=== PATIENT | female | born 1985 | race Caucasian/White ===

== ENCOUNTER → 2018-04-06 17:05 | Outpatient (CLI) | payer SELFPAY ==
[2018-04-06 18:35] LABS: T4 Free Direct 1.06 ng/dL (0.76-1.46)
[2018-04-06 19:04] LABS: Hemoglobin A1c 4.8 % (4.2-6.3)
== END ==
PROVIDERS: Visit Provider Obstetrics & Gynecology
DX: N92.6 Irregular menstruation, unspecified (principal)
CPT/HCPCS: 36415; 83036; 84439; 84443; 84481

== ENCOUNTER → 2018-08-11 | Outpatient (CLI) | payer OTHER, SELFPAY ==
[2018-08-17 10:47] LABS: HPV Reflexed? NOT INDICATED
== END | disposition home or self-care (01) ==
PROVIDERS: Visit Provider Obstetrics & Gynecology
DX: Z12.4 Encounter for screening for malignant neoplasm of cervix (principal)
CPT/HCPCS: 88175; G0145

== ENCOUNTER 2019-02-24 03:49 | Emergency (ER) | payer OTHER, SELFPAY ==
[2019-02-24 03:52] VITALS: BP 138/94; PULSE 122; RESP 18; TEMP 36.7; O2SAT 96; BMI 30.2
--- NOTE | 2019-02-24 03:57 | ED.DCSUM_ITS ---
History of Present Illness Chief Complaint: Abd Pain Informant: Patient Onset: Yesterday Narrative: Patient here with family suprapubic discomfort waxing and waning since yesterday. No urinary symptoms. Normal bowel movement 5 hours ago. No fever, chills, sweats. History of tubal ligation. Denies nausea or vomiting. No history of kidney stones or diverticulitis. No previous similar symptoms in the past. History of tubal ligation. No daily medicines. Rare alcohol use. Reports cramping in nature like contractions.. Reports pain is 5 out of 10. Denies any known family history of Crohn's disease or ulcerative colitis. No history of colonoscopy. Prior similar symptoms: No Past Medical History - Allergies and Home Meds Allergies/Adverse Reactions: Allergies No Known Allergies Allergy (Verified 02/24/19 03:49) Primary Care Physician: Care Physician,No Primary [Primary Care Provider] - Smoking Status: Light Smoker (<10/day) Review of Systems General: Denies: Chills, Fever, Sweats Eyes: Denies: Visual changes - bilaterally, Diplopia ENT: Denies: Rhinorrhea, Sore throat Cardiovascular: Denies: Chest pain, Palpitations Respiratory: Denies: Dyspnea, Cough, Dyspnea on exertion Gastrointestinal: Reports: Abdominal pain. Denies: Nausea, Vomiting, Diarrhea, Melena, Hematochezia Genitourinary: Denies: Dysuria, Hematuria, Frequency Musculoskeletal: Denies: Back pain, Extremity Pain Skin: Denies: Rash, Wounds Neurological: Denies: Headache, Weakness, Numbness Physical Exam Vital Signs/Narrative: Vital Signs Temp Pulse Resp BP Pulse Ox 02/24/19 03:52 98.0 F 122 H 18 138/94 H 96 Inital Vital Signs reviewed: Yes General: Well nourished, Well developed, No Acute Distress Head: Normocephalic, Atraumatic Eyes: Perrl, EOMI ENT: Moist mucous membranes, No rhinorrhea Neck: Supple, Nontender Cardiovascular: Regular rate, Regular rhythm, No murmurs, Tachycardia Respiratory: No distress, CTA bilaterally, Chest nontender Abdomen: Soft, Nondistended, Normal bowel sounds, - - Negative Ceja's or McBurney's tenderness. Mild suprapubic tenderness. No guarding or rebound Back: Nontender, Normal Inspection Extremities: Nontender, No edema Skin: Normal color, No rash Neurological: Alert, Oriented x3, Cranial nerves II-XII grossly intact, Normal Strength, Normal Sensation Psychological: Normal affect, Normal Mood Diagnostic/Tx/Re-eval Clinical Impression(s) from Imaging Studies Abdomen/Pelvis CT 02/24/19 03:57 IMPRESSION: Acute sigmoid diverticulitis. There is no appendicitis, abdominal ascites abscess, collection, perforation or obstruction. Possible ovarian cysts versus mild fluid filled fallopian tubes, no inflammation detected. Mild pelvic fluid. Electronically Signed: Eve Márquez MD at 4:56 EDT , Service support , Abnormal Lab Results 02/24/19 02/24/19 02/24/19 04:05 04:10 04:10 WBC 12.6 H RBC 4.30 Hgb 13.6 Hct 38.7 MCV 90.0 MCH 31.6 MCHC 35.1 RDW Std Deviation 41.7 RDW Coeff of Min 12.7 Plt Count 218 MPV 11.4 Immature Gran % (Auto) 0.300 Neut % (Auto) 80.7 H Lymph % (Auto) 12.5 L [place] % (Auto) 6.2 Eos % (Auto) 0.1 Baso % (Auto) 0.2 Absolute Neuts (auto) 10.2 H Absolute Lymphs (auto) 1.57 Nucleated RBC % 0 Sodium Cancelled Potassium Cancelled Chloride Cancelled Carbon Dioxide Cancelled Anion Gap Cancelled BUN Cancelled Creatinine Cancelled Estim Creat Clear Calc Cancelled Est GFR (MDRD) Af Amer Cancelled Est GFR (MDRD) Non-Af Cancelled BUN/Creatinine Ratio Cancelled Glucose Cancelled Calcium Cancelled Total Bilirubin Cancelled AST Cancelled ALT Cancelled Alkaline Phosphatase Cancelled Total Protein Cancelled Albumin Cancelled Globulin Cancelled Albumin/Globulin Ratio Cancelled Lipase Cancelled Urine Color Yellow Urine Clarity Clear Urine pH 6.0 Ur Specific [place] 1.015 Urine Protein Negative Urine Glucose (UA) Normal Urine Ketones 150 H Urine Occult Blood 25 H Urine Nitrite Negative Urine Bilirubin Negative Urine Urobilinogen Normal Ur Leukocyte Esterase Negative Urine RBC 0 SEEN Urine WBC 0 SEEN Ur Squamous Epith Cells 0-5 SEEN Urine Bacteria 0 SEEN Urine Mucus 0 SEEN 02/24/19 04:30 WBC RBC Hgb Hct MCV MCH MCHC RDW Std Deviation RDW Coeff of Min Plt Count MPV Immature Gran % (Auto) Neut % (Auto) Lymph % (Auto) [place] % (Auto) Eos % (Auto) Baso % (Auto) Absolute Neuts (auto) Absolute Lymphs (auto) Nucleated RBC % Sodium 142 Potassium 3.4 L Chloride 110 H Carbon Dioxide 22.0 Anion Gap 10 BUN 9 Creatinine 0.70 Estim Creat Clear Calc 120.49 Est GFR (MDRD) Af Amer 122 Est GFR (MDRD) Non-Af 101 BUN/Creatinine Ratio 12.9 Glucose 97 Calcium 8.4 L Total Bilirubin 1.10 H AST 13 L ALT 21 Alkaline Phosphatase 76 Total Protein 6.7 Albumin 3.3 Globulin 3.4 Albumin/Globulin Ratio 1.0 Lipase 105 Urine Color Urine Clarity Urine pH Ur Specific [place] Urine Protein Urine Glucose (UA) Urine Ketones Urine Occult Blood Urine Nitrite Urine Bilirubin Urine Urobilinogen Ur Leukocyte Esterase Urine RBC Urine WBC Ur Squamous Epith Cells Urine Bacteria Urine Mucus - Medical Decision Making Patient afebrile, nonsurgical abdomen. Fluids for tachycardia. She declined any pain medicines. Labs noted white count 12.6. Noncontrast CT notes acute diverticulitis sigmoid colon. Also noted ovarian cyst. Normal appendix. Discussed findings with patient. Start on Cipro and Flagyl for 10-day course. Discussed using Tylenol or Motrin as needed. Signs and symptoms discussed return otherwise she is given follow-up with Dr. Pereira for plan outpatient colonoscopy in the near future. States her current PCP is no longer practicing in the area. She will follow-up with her valve fitter with findings of ovarian cysts. All questions were answered. ED Disposition - Plan for ED Patient: Disposition: Home or Assisted Living Diagnosis: Acute diverticulitis, Ovarian cyst Instructions: Diverticulitis, Ovarian Cyst Prescriptions: Ciprofloxacin [Cipro] 500 mg PO BID #20 tablet metroNIDAZOLE [Flagyl] 500 mg PO Q8H #30 tablet Referrals: Care Physician,No Primary [Primary Care Provider] - Jere Pereira MD [STAFF PHYSICIAN] - 1-2 Weeks Additional Instructions: Follow-up with Dr. Pereira for diverticulitis with your plan outpatient colonoscopy. Follow-up with your valve fitter for ovarian cysts.
--- NOTE | 2019-02-24 03:57 | CT_ITS ---
STUDY: CT ABDOMEN AND PELVIS WITHOUT CONTRAST REASON FOR EXAM: Female, 33 years old. Suprapubic pain and cramping since yesterday. Prior tubal ligation. RADIATION DOSAGE (If Supplied By Facility): CTDIvol = ( 7.19 ) mGy, DLP = ( 346.81 ) mGycm TECHNIQUE: Transaxial images were obtained from the dome of the diaphragm to the symphysis pubis without oral contrast, and without intravenous contrast. Sagittal and coronal images were reconstructed. Individualized dose optimization techniques were used for this CT. COMPARISON: None. FINDINGS: The visualized lung bases are unremarkable. The visualized portions of the heart are within normal limits. Normal liver. Normal gallbladder and extrahepatic biliary system. Normal spleen. Normal pancreas. Normal bilateral adrenal glands. Normal right kidney. Normal left kidney. There is no obstructive uropathy, obstructive renal or ureteral calculi. Normal visualized stomach. Normal small intestine. There is diverticulosis, with thickening of the sigmoid colon wall, and pericolonic inflammation changes consistent with acute diverticulitis. The appendix is visualized and appears normal. Image [id number] series 2 Normal abdominal aorta. Normal inferior vena cava. Normal retroperitoneum. Normal urinary bladder. Normal visualized uterus. Bilateral fallopian tube clips. Tubular low-attenuation in the left greater than right adnexa a represent an elongated cysts. Tubular dilatation without wall thickening is difficult to separate. This measures on the left 1.5 x 1.5 cm, 0.7 cm on the right. There is mild pelvic fluid in the cul-de-sac. Normal abdominal wall. Age appropriate osseous structures. CT/Abdomen/Pelvis without Cont IMPRESSION: Acute sigmoid diverticulitis. There is no appendicitis, abdominal ascites abscess, collection, perforation or obstruction. Possible ovarian cysts versus mild fluid filled fallopian tubes, no inflammation detected. Mild pelvic fluid. Electronically Signed: Eve Márquez MD at 4:56 EDT , Service support ,
[2019-02-24 04:09] LABS: Bacteria 0 SEEN /hpf (None Seen); Mucous, Urine 0 SEEN /hpf (<or=2+); Red Blood Cells-Urine 0 SEEN /hpf (0-5); White Blood Cells 0 SEEN /hpf (0-5)
[2019-02-24 04:11] VITALS: TEMP 37
[2019-02-24 04:11] LABS: Color, Urine Yellow (Yellow); Glucose, Dipstick Normal (Normal); Leukocyte Esterase-Dipstick Negative /ul (Negative); Nitrite-Dipstick Negative (Negative); Occult Blood-Urine 25 /ul (Negative); Protein-Dipstick Negative (Negative); Specific Gravity, Urine 1.015 (1.002-1.030); Urine Bilirubin Dipstick Negative (Negative); Urine Clarity Clear (Clear); Urine Urobilinogen Normal (Normal)
[2019-02-24 04:18] LABS: Absolute Lymphocyte Count 1.57 X10^3/uL (0.83-4.51); Absolute Neutrophil Count 10.2 X10^3/uL (2.0-7.7); Basophil# 0.02 X10^3/uL; Basophil% 0.2 % (0-1); Eosinophil# 0.01 X10^3/uL; Eosinophils% 0.1 % (0-5); Hematocrit 38.7 % (37-47); Hemoglobin 13.6 g/dL (12.0-15.0); Lymphocyte # 1.57 X10^3/ul (4.0); Lymphocyte % 12.5 % (19-41); Mean Corp Hgb Conc 35.1 g/dL (32-36); Mean Corpuscular Hgb 31.6 pg (27.0-32.0); Mean Platelet Vol. 11.4 fl (6.2-12.0); Monocyte# 0.78 X10^3/uL; Monocyte% 6.2 % (0-10); NRBC Flagged by Analyzer 0 % (0-5); Neutrophil # 10.18 X10^3/uL (2.7-7.7); Neutrophil % 80.7 % (47-70); Platelet Count 218 K/mm3 (150-450); RBC Distribution Width CV 12.7 % (11.6-14.6); RBC Distribution Width SD 41.7 fl (35.1-43.9); White Blood Count 12.6 K/mm3 (4.4-11.0)
[2019-02-24 04:25] LABS: Ketone-Dipstick 150 mg/dl (Negative)
[2019-02-24 04:32] LABS: Squamous Epithelial Cells - UA 0-5 SEEN /hpf (5-10)
[2019-02-24 05:11] LABS: AST(SGOT) 13 U/L (15-37); Alanine Aminotransfer ALT/SGPT 21 U/L (13-56); Albumin, Serum 3.3 g/dL (3.2-5.0); Alkaline Phosphatase 76 U/L (45-117); Anion Gap 10 (5-15); BUN 9 mg/dL (7-18); BUN/Creat Ratio 12.9 RATIO (10-20); Calcium,Total 8.4 mg/dL (8.5-10.1); Chloride 110 mmol/L (98-107); EST Glomerular Filtration Rate 101 mL/min (>60); Est Glom Filt Rate - Afr Amer 122 mL/min (>60); Estimated Creatinine Clearance 120.49 ml/min; Globulin 3.4 g/dL (2.2-4.2); Glucose 97 mg/dL (74-106); Lipase 105 U/L (73-393); Potassium 3.4 mmol/L (3.5-5.1); Protein, Total 6.7 g/dL (6.4-8.2); Sodium Level 142 mmol/L (136-145)
[2019-02-24 05:49] VITALS: RESP 16
[2019-02-24] MEDS: metroNIDAZOLE 500 MG Tablet PO (05:59)
[2019-02-24] MEDS: Ciprofloxacin 500 MG Tablet PO (05:59)
[2019-02-24 06:03] VITALS: BP 97/74; PULSE 100; RESP 16; O2SAT 98
== END 2019-02-24 06:04 | disposition home or self-care (01) ==
PROVIDERS: Emergency Provider Emergency Medicine
DX: K57.32 Diverticulitis of large intestine without perforation or abscess without bleeding (principal); N83.209 Unspecified ovarian cyst, unspecified side; F17.200 Nicotine dependence, unspecified, uncomplicated; Z98.51 Tubal ligation status
CPT/HCPCS: 74176; 80053; 81001; 83690; 85025; 99284; J7030; A4216

== ENCOUNTER 2019-04-17 09:21 | Day surgery (SDC) | payer OTHER, SELFPAY ==
--- NOTE | 2019-04-07 01:16 | HP_ITS ---
Intake Vital Signs 04/07/19 Body Mass Index (BMI) 30.2 04/07/19 Height 4 ft 11 in 04/07/19 Weight: 145 lb 04/07/19 Body Mass Index (BMI) 29.2 04/07/19 Blood Pressure 115/75 04/07/19 Blood Pressure Location Rt brachial 04/07/19 Respiratory Rate 16 04/07/19 Pulse Rate 59 L 04/07/19 Pulse Source Monitor 04/07/19 Temperature 97.5 F L 04/07/19 Temperature Source Oral 04/07/19 Pulse Ox 99 04/07/19 Oxygen Delivery Method room air Intake Visit Reasons: ER 1 MONTH F/U [facility] 02/24 Abdominal Pain Guard Lieutenant Required: No Is patient in pain?: No Allergies No Known Allergies Allergy (Verified 04/07/19 13:01) Medications fluconazole 50 mg tablet 50 mg PO 2XW tab 03/09/19 [History Confirmed 03/09/19] PFSH Medical History Ovarian cyst (Acute) Diverticulitis (Acute) Abdominal pain (Acute) Sterilization (Acute) Surgical History Hx of tonsillectomy (Acute) History of surgical removal of ganglion cyst (Acute) Hx of tubal ligation (Acute) Hx of tooth extraction (Acute) Family History Father Diverticulitis Social History (Updated 04/07/19 @ 13:16 by Mitali Kim MD) Smoking Status: Never smoker alcohol intake: current alcohol intake frequency: a few times a month substance use type: does not use caffeine: No what type of physical activity do you participate in: walking frequency: daily HPI HPI HPI: OZZY MUSA, is a 33 F who presents to the office today for HPI HPI Surgical H&P: Yes HPI: OZZY MUSA, is a 33 F who presents to the office today for follow-up from recent diverticulitis. Patient states she is doing well. Patient tolerating low fiber diet and denies any issues. Patient states she has bowel movements daily denies any blood. Patient never had a colonoscopy previously. Denies any family history of colon cancer. Patient does states she has occasional lower abdominal brief cramps on both sides but thinks is due to her ovarian cyst because this does resolve on its own, unlike her episode of diverticulitis. ROS General General: No fatigue Gastro Gastrointestinal: No abdominal pain, No nausea or vomiting, No diarrhea, No constipation, No blood in stool, No acid reflux, No hemorrhoids, No black,tarry stools Exam Const General: cooperative, comfortable, no acute distress Resp Effort & Inspection: normal respiratory effort Cardio Rate: regular rate GI Inspection: non-distended Palpation: soft, no guarding, nontender Assessment & Plan Problems 1. History of diverticulitis of colon Z87.19 Plan I have discussed the above with the patient. I have offered the patient colonoscopy for evaluation. I have explained the risks/benefits of the procedure and described the procedure. I have discussed the risks with the patient, including but not limited to: infection, bleeding, perforation of the GI tract requiring emergency surgery, inability to complete the procedure, injury to any internal organs, complications of anesthesia, etc. - the patient understands and agrees to proceed. I have answered all the patient's questions to the patient's satisfaction and the patient has no further questions. The patient has been given instructions for the colon cleansing preparation. One day of clears, MiraLAX Dulcolax split prep. Mitali Kim M.D. Pager: [phone] [facility] [address] [place] [address], [address] [place] [address] Office: [phone] Orders Orders: Colonoscopy Today Coding Level of Care Code Off vis,est,level 3 Diagnoses History of diverticulitis of colon Z87.19 04/07/19 1316 <Electronically signed by Mitali Owens am, MD> Date _ Mitali Kim MD I have re-examined the patient. There are no clinical changes since date of exam.
[2019-04-07 13:13] VITALS: BMI 30.2
[2019-04-17] VITALS (7 sets, daily range): BP systolic 96–101; BP diastolic 68–78; PULSE 74–109; RESP 16–18; TEMP 36.3–36.7; O2SAT 95–100; BMI 28.3
[2019-04-17] MEDS: Lactated Ringers 1,000 ML 100 ML IV (10:08)
--- NOTE | 2019-04-17 10:51 | OP.ENDO_ITS ---
04/17/2019 No Primary Care Physician Re : Colonoscopy procedure for Nidia Garcia Dear Care Physician This procedure was performed on Wednesday, April 17, 2019. My impressions and recommendations are as follows: Impressions : - Diverticulosis in the sigmoid colon. - The examination was otherwise normal on direct and retroflexion views. - No specimens collected. Recommendations : - Discharge patient to home. - High fiber diet. - Continue present medications. - Repeat colonoscopy at age 45/50 (depends if the age changes from 50) for annual screening. My findings are described in the full procedure note, which is enclosed. If I can be of further assistance, please feel free to contact me at Doctor phone number(s): , Work: . Sincerely, MD Mitali Brantley MD 04/17/2019 10:50:37 AM This report has been signed electronically.
== END 2019-04-17 11:46 | disposition home or self-care (01) ==
LOC: EN 09:21 → AC 09:26
PROVIDERS: Referring Provider Surgery; Visit Provider Surgery
PROC: 0DJD8ZZ Inspection of Lower Intestinal Tract, Via Natural or Artificial Opening Endoscopic (ICD-10-PCS; CPT 45378; principal; 2019-04-17 10:25)
DX: K57.32 Diverticulitis of large intestine without perforation or abscess without bleeding (principal); K57.30 Diverticulosis of large intestine without perforation or abscess without bleeding; Z87.19 Personal history of other diseases of the digestive system; Z87.891 Personal history of nicotine dependence
CPT/HCPCS: 45378; J7120

== ENCOUNTER 2019-09-01 13:54 | Inpatient (IN) | payer BC, SELFPAY ==
[2019-04-17 09:56] VITALS: BMI 28.3
[2019-09-01] VITALS (10 sets, daily range): BP systolic 101–129; BP diastolic 61–81; PULSE 81–109; RESP 16–22; TEMP 36.3–37.2; O2SAT 94–100; BMI 29.2; BMI 30.7
--- NOTE | 2019-09-01 | COL_PTH ---
PATIENT: OZZY MUSA LOC: MS3 U#:[id number] AGE/SX: 34/F ROOM: CT305 RE09/01/[address]: Dr. Moses Purdy MD : 1985 BED: 1 DIS: 09/04/2019 SPEC #: [id number] RECD: 09/03/19 23:36 STATUS: MATHEW REAndrew #: [id number] MONSE: 09/01/19 00:[address]: Moses Purdy DEPT: SURGICAL PATHOLOGY RECD BY: Mark Cole ENTERED: 09/04/19 08:21 SP TYPE: COLON OTHR DR: No Primary Care Phys Tissues: A - Colon, NOS B - TISSUE SURGICALLY REMOVED Procedures: Surgery Specimen Level IV Surgery Specimen Level V HEADER OPERATION: Laparoscopy converted to open sigmoid colectomy PRE-OP DIAGNOSIS: Perforation of sigmoid colon D/T/ diverticulitis TISSUE SUBMITTED: A - Sigmoid colon and omentum, B - Left hydrosalpinx MICROSCOPIC DIAGNOSIS A. Sigmoid colon, segmental resection: Diverticular disease of colon. Pericolonic tissue with acute inflammation and acute serositis. Margins of excision with no pathologic change. Omentum, biopsy: Marked acute inflammation and abscess formation. B. Left hydrosalpinx, excision: Segment of fallopian tube with hydrosalpinx. AM:rikki 09/05/19 MICROSCOPIC DESCRIPTION Slides are reviewed. GROSS DESCRIPTION A - Received in fixative is one container labeled with the patient's name and designated sigmoid colon and omentum. The specimen consists of 8.5 cm of bowel with fat wrapping. No perforation is evident. The serosal surface contains yellow-graves discoloration. Also present in the specimen container are two mucosal donuts, one measuring 2 cm in diameter and the other measuring 2.5 cm in diameter. Both mucosal donuts are grossly unremarkable. Also present in the specimen container is an irregular fragment of yellow-graves omentum measuring 8 x 5 x 1 cm. A focal area of induration consisting of fibrinoid material is present. This area measures 4 cm in greatest dimension. Serial sections reveal multiple diverticula, none of which appear to have perforated through the bowel wall. Rotary Bar Operator sections are submitted in six cassettes as follows: 1 - mucosal donuts, 2-5 - diverticula, 6 - pericolic soft tissue. B - Received in fixative is one container labeled with the patient's name and designated left hydrosalpinx. The specimen consists of a fallopian tube ranging in diameter from 1 to 2 cm. The lumen contains clear fluid. Rotary Bar Operator sections are submitted in one cassette. / AM:rikki 09/04/19 TC:3 CPT: 89472, 63389 x2
--- NOTE | 2019-09-01 15:08 | CT_ITS ---
We are attempting to reach an attending provider to discuss findings. An addendum with communication details will be sent when the communication is complete. STUDY: CT ABDOMEN AND PELVIS WITH CONTRAST REASON FOR EXAM: Female, 34 years old. ABDOMINAL PAIN X2 DAYS. DIARRHEA. RADIATION DOSAGE (If Supplied By Facility): CTDIvol = ( 10.115 ) mGy, DLP = ( 699.04 ) mGycm TECHNIQUE: Transaxial images were obtained from the dome of the diaphragm to the symphysis pubis with oral contrast. Oral and amp; IV Gastrografin and amp; 100mL Isovue-300 was administered. Sagittal and coronal images were reconstructed. Individualized dose optimization techniques were used for this CT. COMPARISON: 02/24/2019. FINDINGS: The visualized lung bases are unremarkable. The visualized portions of the heart are within normal limits. There is significant free air in the anterior upper quadrants including over the surface of the liver. Lesser amounts of free air are seen in the area of the babita hepatis and along the left flank and along bowel loops in the left lower quadrant. Findings appear to be related to perforated acute proximal sigmoid diverticulitis, as seen on axial images 86-98 where there is also regional inflammatory stranding. No gross abscess is seen. There is evidence for secondary small bowel ileus with several distended loops of small bowel. Normal caliber large bowel. Normal appendix. Normal liver. Normal gallbladder and extrahepatic biliary system. Normal spleen. Normal pancreas. Normal bilateral adrenal glands. Normal right kidney. Normal left kidney. Normal abdominal aorta. Normal inferior vena cava. Normal retroperitoneum. Normal urinary bladder. Normal visualized uterus. Normal abdominal wall. Normal osseous structures. CT/Abdomen/Pelvis WITH Contrast IMPRESSION: Probable perforated acute sigmoid diverticulitis with small to moderate free air in the abdomen. No definite abscess. Secondary small bowel ileus. Electronically Signed: Nba Flores MD at 17:18 EST , Service support ,
--- NOTE | 2019-09-01 15:11 | ED.DCSUM_ITS ---
- ER Visit Summary Date of Service: 09/01/19 Chief Complaint: Abdominal pain History of Present Illness: The patient is a 34 F who presents with abdominal pain that is been getting worse since yesterday. Patient his pain has gradually gotten worse. Patient describes her pain as aching but sharp and stabbing at times and cramping at times. Patient states her pain is diffuse across her abdomen. Patient is nothing makes it better or worse. Patient denies any nausea or vomiting. Patient does admit to some diarrhea but denies any melena or hematochezia. Patient denies any dysuria or hematuria. Patient states her last menstrual period was 1 week ago. Physical Examination: Vital signs are stable. Patient is afebrile. Patient is in no acute distress. Oral mucosa is pink and moist. Neck is supple. Trachea is midline. There is no JVD. Heart was regular rate and rhythm. Lungs are clear and equal bilaterally. Abdomen is soft. Bowel sounds are normal. There is diffuse tenderness but worse in the left lower quadrant. There is no rebound or guarding noted. Cranial nerves II through XII are intact. There are no focal motor or sensory deficits noted. Test Results: CBC shows a mild leukocytosis of 12.4. Comprehensive metabolic profile was essentially within normal limits with the exception of a slightly elevated total bilirubin of 2.4. Lipase was normal. Urinalysis does not show any evidence of urinary tract infection. Urine ketones were elevated at 150. Serum hCG was negative. CT scan of the abdomen and pelvis was obtained. There is perforated sigmoid diverticulitis noted. This was interpreted by the radiologist and reviewed by myself. Emergency Department Course and Treatment: Patient was given morphine and Zofran initially. Patient had persistent pain. Patient was given a dose of Dilaudid. Patient was given Zosyn. An NG tube was placed. Case was discussed with Dr. Purdy. He will take the patient to the operating room tonight. Patient and family understood and were agreeable with the plan. All questions were answered. Disposition: Admit to operating room Impression: Perforated diverticulitis This note was generated with [employer] software. It may contain incorrect words, spelling, and punctuation that were not noted in review of the chart prior to signing ED Disposition - Plan for ED Patient: Disposition: Acute Care Hospital [facility] Diagnosis: Perforation of sigmoid colon due to diverticulitis
[2019-09-01 15:27] LABS: Absolute Neutrophil Count 11.2 X10^3/uL (2.0-7.7); Basophil# 0.02 X10^3/uL; Basophil% 0.2 % (0-1); Eosinophil# 0.01 X10^3/uL; Eosinophils% 0.1 % (0-5); Hematocrit 38.1 % (37-47); Hemoglobin 12.3 g/dL (12.0-15.0); Lymphocyte % 5.7 % (19-41); Mean Corp Hgb Conc 32.3 g/dL (32-36); Mean Corpuscular Hgb 28.9 pg (27.0-32.0); Mean Corpuscular Volume 89.6 fL (81-99); Mean Platelet Vol. 10.8 fl (6.2-12.0); Monocyte# 0.35 X10^3/uL; Monocyte% 2.8 % (0-10); NRBC Flagged by Analyzer 0 % (0-5); Neutrophil # 11.24 X10^3/uL (2.7-7.7); Neutrophil % 90.8 % (47-70); Platelet Count 186 K/mm3 (150-450); RBC Distribution Width CV 14.2 % (11.6-14.6); RBC Distribution Width SD 45.8 fl (35.1-43.9); Red Blood Count 4.25 M/mm3 (4.2-5.4); White Blood Count 12.4 K/mm3 (4.4-11.0)
[2019-09-01] MEDS: Morphine 4 MG/ML Syringe IV (15:35)
[2019-09-01] MEDS: Ondansetron 4 MG/2 ML Vial IV ×2 (15:35→23:24)
[2019-09-01] MEDS: 0.9% Normal Saline 1,000 ML 1000 ML IV (15:35)
[2019-09-01 15:38] LABS: Internal QC Validated? YES +Cl - CLEAR BKGD; Pregnancy, Serum, hCG Quali. NEGATIVE Negative
[2019-09-01 15:43] LABS: AST(SGOT) 11 U/L (15-37); Alanine Aminotransfer ALT/SGPT 20 U/L (13-56); Albumin, Serum 3.6 g/dL (3.2-5.0); Alkaline Phosphatase 73 U/L (45-117); Anion Gap 5 (5-15); BUN 9 mg/dL (7-18); BUN/Creat Ratio 12.1 RATIO (10-20); Calcium,Total 9.1 mg/dL (8.5-10.1); Chloride 108 mmol/L (98-107); Creatinine, Serum 0.74 mg/dL (0.55-1.02); EST Glomerular Filtration Rate 94 mL/min (>60); Est Glom Filt Rate - Afr Amer 114 mL/min (>60); Estimated Creatinine Clearance 109.12 ml/min; Globulin 3.6 g/dL (2.2-4.2); Glucose 92 mg/dL (74-106); Lipase 47 U/L (73-393); Potassium 3.4 mmol/L (3.5-5.1); Protein, Total 7.2 g/dL (6.4-8.2); Sodium Level 139 mmol/L (136-145)
[2019-09-01] MEDS: HYDROmorphone 1 MG/ML Syringe IV (16:15)
[2019-09-01 17:10] LABS: Bacteria 0 SEEN /hpf (None Seen); Mucous, Urine 0 SEEN /hpf (<or=2+); Red Blood Cells-Urine 0 SEEN /hpf (0-5); White Blood Cells 0 SEEN /hpf (0-5)
[2019-09-01 17:16] LABS: Color, Urine Yellow (Yellow); Glucose, Dipstick Normal (Normal); Leukocyte Esterase-Dipstick Negative /ul (Negative); Nitrite-Dipstick Negative (Negative); Occult Blood-Urine 10 /ul (Negative); Protein-Dipstick Negative (Negative); Urine Bilirubin Dipstick Negative (Negative); Urine Clarity Sl. Cloudy (Clear); Urine Urobilinogen Normal (Normal)
[2019-09-01 17:18] LABS: Ketone-Dipstick 150 mg/dl (Negative)
--- NOTE | 2019-09-01 17:24 | NURSING ---
SURGERY DR QUINTANA PERFORATED DIVERTICULITIS
[2019-09-01 17:26] LABS: Squamous Epithelial Cells - UA 0-5 SEEN /hpf (5-10)
--- NOTE | 2019-09-01 17:32 | NURSING ---
AFTER SURGERY 305
--- NOTE | 2019-09-01 17:45 | PCM.HP.STD ---
Problem List (1) Perforation of sigmoid colon due to diverticulitis Status: Acute History of Present Illness Date of Admission: 09/01/19 The patient is a 34 year old F who presents with abdominal pain since yesterday. Patient reports no nausea or vomiting. Patient reports her pain is in her lower abdomen. She has a history of diverticulitis this past February. She had a colonoscopy subsequently which was normal except for diverticulosis. Past Medical History Medical History: Medical History (Last Reviewed 04/07/19 @ 12:59 by Jessica Morales) Ovarian cyst (Acute) N83.209 Diverticulitis (Acute) K57.92 Abdominal pain (Acute) R10.9 Sterilization (Acute) Z30.2 Allergies metronidazole [From Flagyl] Adverse Reaction (Verified 09/01/19 13:56) Vomiting Home Medications: Ambulatory Orders Medication Instructions Recorded NK 04/12/19 Surgical History: Surgical History (Last Reviewed 04/07/19 @ 12:59 by Jessica Morales) Hx of tonsillectomy (Acute) Z90.89 History of surgical removal of ganglion cyst (Acute) Z98.890 Left wrist- 06/2010 Hx of tubal ligation (Acute) Z98.51 Hx of tooth extraction (Acute) K08.409 02/1999 Smoking Status: Never smoker - *Family History Maternal Family History: Family History (Last Reviewed 04/07/19 @ 12:59 by Jessica Morales) Father Diverticulitis Review of Systems Constitutional: Denies: Anorexia, Fever HEENT: Denies: Difficulty Hearing, Difficulty Swallowing Cardiovascular: Denies: Chest Pain Respiratory: Denies: Cough, Shortness of Breath Gastrointestinal: Reports: Abdominal Pain. Denies: Diarrhea, Hematemesis, Hematochezia, Nausea, Vomiting Genitourinary: Denies: Dysuria Musculoskeletal: Denies: Joint Tenderness Skin: Denies: Jaundice Neurological: Denies: Balance problems VTE Information - Inpt Only VTE Present on Admission: No VTE Mechan Device Prophylaxis: SCD's Patient Problems: Active and Suspected Problems (Last Reviewed 04/07/19 @ 12:59 by Jessica Morales) Perforation of sigmoid colon due to diverticulitis (Acute) - Physical Exam Vitals/I&O's: Vital Signs Temp Pulse Resp BP Pulse Ox 98 F 109 H 22 H 129/74 H 100 09/01/19 13:56 03/06/20 13:56 09/01/19 16:22 09/01/19 13:56 09/01/19 13:56 Oxygen Delivery Method Room Air Weight: 145 lb Body Mass Index (BMI) 29.2 Intake and Output for Last 24 Hours 08/30/19 08/31/19 09/01/19 23:59 23:59 23:59 Intake Total 1000 / 1000 Balance 1000 / 1000 General: Alert, Oriented x3 Neck: No JVD Lungs: Normal air movement Cardiovascular: Regular Rhythm, Tachycardic Abdomen: Non-Distended, Tender Skin: No rashes Musculoskeletal: No Muscle Wasting Neurological: Cranial nerves II-XII grossly intact Psych/Mental Status: Normal Affect Laboratory Results 09/01/19 15:15: WBC 12.4 H, RBC 4.25, Hgb 12.3, Hct 38.1, MCV 89.6, MCH 28.9, MCHC 32.3, RDW Std Deviation 45.8 H, RDW Coeff of Min 14.2, Plt Count 186, MPV 10.8, Immature Gran % (Auto) 0.400, Neut % (Auto) 90.8 H, Lymph % (Auto) 5.7 L, Mower % (Auto) 2.8, Eos % (Auto) 0.1, Baso % (Auto) 0.2, Absolute Neuts (auto) 11.2 H, Absolute Lymphs (auto) 0.70 L, Nucleated RBC % 0 09/01/19 15:15: Sodium 139, Potassium 3.4 L, Chloride 108 H, Carbon Dioxide 26.0, Anion Gap 5, BUN 9, Creatinine 0.74, Estim Creat Clear Calc 109.12, Est GFR (MDRD) Af Amer 114, Est GFR (MDRD) Non-Af 94, BUN/Creatinine Ratio 12.1, Glucose 92, Calcium 9.1, Total Bilirubin 2.40 H, AST 11 L, ALT 20, Alkaline Phosphatase 73, Total Protein 7.2, Albumin 3.6, Globulin 3.6, Albumin/Globulin Ratio 1.0, Lipase 47 L 09/01/19 15:15: Serum , Qual NEGATIVE 09/01/19 17:05: Urine Color Yellow, Urine Clarity Sl. Cloudy, Urine pH 5.0, Ur Specific [place] 1.010, Urine Protein Negative, Urine Glucose (UA) Normal, Urine Ketones 150 H, Urine Occult Blood 10 H, Urine Nitrite Negative, Urine Bilirubin Negative, Urine Urobilinogen Normal, Ur Leukocyte Esterase Negative, Urine RBC 0 SEEN, Urine WBC 0 SEEN, Ur Squamous Epith Cells 0-5 SEEN, Urine Bacteria 0 SEEN, Urine Mucus 0 SEEN Clinical Impression(s) from Imaging Studies Abdomen/Pelvis CT 09/01/19 15:08 IMPRESSION: Probable perforated acute sigmoid diverticulitis with small to moderate free air in the abdomen. No definite abscess. Secondary small bowel ileus. Electronically Signed: Nba Flores MD at 17:18 EST , Service support , ADDENDUM: 09/01/19 1734 IMPRESSION: Probable perforated acute sigmoid diverticulitis with small to moderate free air in the abdomen. No definite abscess. Secondary small bowel ileus. N.B. : The above information has been verbally conveyed by Nba Flores MD to Herbert Rodriguez MD, on 09/01/2019 17:27:03 (ET). Electronically Signed: Nba Flores MD at 17:18 EST , Service support , Current Medications Piperacillin Sod/Tazobactam (Sod 3.375 gm/ Sodium Chloride) 50 mls @ 100 mls/hr IV X1 ONE Stop: 09/01/19 17:50 Lactated Ringer's () 1,000 mls @ 100 mls/hr IV .Q10H [facility] Assessment/Plan All Active Problems (Last Reviewed 04/07/19 @ 12:59 by Jessica Morales) Perforation of sigmoid colon due to diverticulitis (Acute) Ovarian cyst (Acute) Diverticulitis (Acute) Hx of tonsillectomy (Acute) History of surgical removal of ganglion cyst (Acute) Hx of tubal ligation (Acute) Hx of tooth extraction (Acute) Abdominal pain (Acute) Sterilization (Acute) 34-year-old female with acute perforated diverticulitis 1. The patient has a history of acute diverticulitis back in February of last year. She subsequently had a colonoscopy which was normal except for diverticulosis. She reports pain since yesterday in the lower abdomen. CT scan reveals acute diverticulitis with copious Music Critic free air in the abdomen. 2. I discussed this with her and recommended emergency surgery for sigmoid colectomy. I discussed laparoscopic possible open sigmoid colectomy with the patient. I will try to perform an anastomosis as she has a low stool load in the colon and no hard stool in the rectal area. I did discuss possible stoma with her as well as the risks of surgery including but not limited to bleeding, infection, ureteral or bladder injury, open surgery, stoma. The patient agreed to proceed and all questions were answered. 3. NG will be placed in the ER due to ileus and large amount of gas in the stomach. Patient also be given Zosyn and another fluid bolus. Moses Purdy MD Pager: [facility] [address] [place] [address], [address] [place] [address] Office:
[2019-09-01] MEDS: Lidocaine 2% Jelly 1 APPLIC Tube TOPICAL (17:47)
--- NOTE | 2019-09-01 18:10 | RAD_ITS ---
STUDY: X-RAY - ABDOMEN/PELVIS REASON FOR EXAM: Female, 34 years old. NG placement TECHNIQUE: Single AP view of the abdomen / pelvis. COMPARISON: CT scan of earlier today which showed free air.. FINDINGS: Moderate lung volumes. There is free air under the right hemidiaphragm consistent with the recent CT findings. Nasogastric tube is coiled in the upper stomach. There is an unremarkable bowel gas pattern. RAD/Abdomen Single View (Portable) IMPRESSION: Nasogastric tube is coiled in the upper stomach. Electronically Signed: Nba Flores MD at 19:40 EST , Service support ,
[2019-09-01] MEDS: Lactated Ringers 1,000 ML 100 ML IV ×3 (19:15→21:46)
[2019-09-01] MEDS: Bupivacaine 0.25% 30 ML Vial (20:48)
--- NOTE | 2019-09-01 21:19 | OP.PCM_ITS ---
Problem List (1) Perforation of sigmoid colon due to diverticulitis Status: Acute Report of Operation Date of Procedure: 09/01/19 Pre-Operative Diagnosis: Perforated sigmoid diverticulitis Post-Operative Diagnosis: Perforated sigmoid diverticulitis. Left hydrosalpinx Surgery/Procedure Performed:: Laparoscopic converted to open sigmoid colectomy with primary anastomosis. Left hydrosalpingectomy Specimen's removed: Sigmoid colon. Omentum. Left hydrosalpinx Description of Procedure: Patient was brought back the operating room and general anesthesia was induced. A Monge catheter was placed. Patient was placed in lithotomy position. The rectum was prepped with a Betadine saline solution using a mushroom tipped catheter. The abdomen was prepped and draped in usual sterile fashion. An incision was made superior to the umbilicus deepened to the fascia. The fascia was elevated and incised. A finger sweep was performed and a port was placed into the abdomen and the abdomen was insufflated to 15 mmHg. The abdomen was inspected and there was purulence in the pelvis and feculent material. This was suctioned and the sigmoid colon was inspected. The omentum was sealing off a perforation of the sigmoid colon. Majority of the sigmoid colon was noninflamed and not involved. There is a very short segment in the mid sigmoid which was involved with the diverticulitis and swelling. The sigmoid colon was fairly mobile. Using the Enseal the white line of Toldt in the left colon was taken down and this mobilized left colon to medialize the sigmoid colon. The pelvis was inspected after suctioning. There was a large right hydrosalpinx. I contacted Dr. Monzon intraoperatively and described the findings. The patient had had a tubal ligation in the past and he believed that this was a fluid- filled segment due to that procedure. He advised me to remove the small hydrosalpinx. Next a midline incision was made in the inferior midline and d eepened to the fascia. The fascia was incised as was the peritoneum. The thickened portion of sigmoid colon was delivered through the incision. It was clamped on either side and the specimen was removed after taking down the mesentery with the Enseal. A handsewn anastomosis was performed. Two 3-0 chromic sutures were used to bring together the mesenteric ends of the sigmoid colon. In a continuous fashion in opposite directions the chromic was taken to the sides of the bowel and then across the anterior portion of the bowel on the antimesenteric side. Next interrupted fashion 3-0 silk sutures were used circumferentially to imbricate the suture line and perform the second layer of closure. There was good hemostasis and good blood supply at the anastomosis. The anastomosis was inspected and appeared intact and patent. The left hydrosalpinx was delivered through the incision next and taken with the Enseal leaving the tube in place. Both tubes were inspected. There was a nice gap in both the tubes from where the tubal ligation was performed. There were 2 Filshie clips in the pelvis which were removed that were freely floating. The abdomen was then irrigated copiously and suctioned dry. Next the midline fascia was closed from superior and inferior using a running 0 PDS suture from either side meeting in the middle. The superior umbilical incision fascia was closed with interrupted 0 Vicryl suture. All of the subcutaneous tissue was irrigated and suctioned dry and the skin was anesthetized with Marcaine. The small port sites were closed with interrupted 4-0 Monocryl. The small midline incision was closed with 3 interrupted 4-0 Monocryl sutures leaving the skin mostly open. Dressings and OpSite were applied. Patient was extubated and taken to PACU in stable condition. Monge and NG remain to the end of the case. Patient tolerated the procedure well. - Admit VTE Documentation VTE Present on Admission: No VTE Mechan Device Prophylaxis: SCD's
--- NOTE | 2019-09-01 21:20 | RAD_ITS ---
STUDY: X-RAY - ABDOMEN/PELVIS REASON FOR EXAM: Female, 34 years old. NG tube placement. TECHNIQUE: Single AP view of the abdomen / pelvis. COMPARISON: September 01, 2019 (1809 hours). FINDINGS: Lung bases are clear. There is a slight reduction in the loop of the NG tube within the gastric fundus were compared to the previous examination. There is slight overall reduction in small bowel dilatation when compared to the prior study. The subdiaphragmatic air seen on the previous study is not appreciated on the current exam. No other significant interval change. RAD/Abdomen Single View (Portable) IMPRESSION: Slight change in position of the NG tube when compared to the earlier study. Electronically Signed: Mikie Minor DO at 23:14 EST Tel [phone], Service support ,
--- NOTE | 2019-09-01 21:29 | RAD_ITS ---
STUDY: X-RAY - ABDOMEN/PELVIS REASON FOR EXAM: Female, 34 years old. NG PLACEMENT 2ND IMAGE OUT OF 4 TECHNIQUE: Frontal view of the abdomen COMPARISON: 24 February 2019, same date earlier FINDINGS: Gastric tube is present with its tip in the proximal fundus and side port past the gastroesophageal junction. There is difficult to appreciate intra-abdominal free gas. There is no intestinal obstruction. RAD/Abdomen Single View IMPRESSION: Gastric tube in the stomach. Intra-abdominal free gas, presumed perforation. Electronically Signed: Charlee Garcia, at 22:13 EST Tel , Service support ,
--- NOTE | 2019-09-01 21:30 | RAD_ITS ---
STUDY: X-RAY - ABDOMEN/PELVIS REASON FOR EXAM: Female, 34 years old. NG tube placement. TECHNIQUE: Single AP view of the abdomen / pelvis. COMPARISON: September 01, 2019 (2123 hours). FINDINGS: The lung bases are unchanged. There is slight retraction of the NG tube. The tip now overlies the mid stomach. No other interval change RAD/Abdomen Single View IMPRESSION: Slight retraction of the NG tube when compared with study of 12 minutes earlier. Electronically Signed: Mikie Minor DO at 23:12 EST Tel [phone], Service support ,
--- NOTE | 2019-09-01 21:31 | RAD_ITS ---
STUDY: X-RAY - ABDOMEN/PELVIS REASON FOR EXAM: Female, 34 years old. NG tube placement. Fourth image 4. TECHNIQUE: AP supine and decubitus views of the abdomen and pelvis. COMPARISON: Abdomen, September 01, 2019) 2123 hours). FINDINGS: Lung bases are unchanged. There is slight interval advancement of the NG tube with the tip now lying in the gastric fundus. There is no change in the bowel gas pattern The visualized liver, spleen and kidneys are grossly normal in size and morphology. Normal soft tissue structures. There is no osseous change. RAD/Abdomen Single View IMPRESSION: Slight advancement of the NG tube when compared to a study performed moments earlier. Electronically Signed: Mikie Minor DO at 23:14 EST Tel [phone], Service support ,
[2019-09-02] VITALS (7 sets, daily range): BP systolic 99–112; BP diastolic 64–75; PULSE 84–101; RESP 16–20; TEMP 36.3–37.3; O2SAT 96–99
[2019-09-02] MEDS: Ondansetron 4 MG/2 ML Vial IV (05:10)
--- NOTE | 2019-09-02 05:25 | RAD_ITS ---
STUDY: X-RAY - ABDOMEN/PELVIS REASON FOR EXAM: Female, 34 years old. ILEUS -- PERFORATED DIVERTICULITIS TECHNIQUE: Single AP view of the abdomen / pelvis. COMPARISON: 09/01/2019. FINDINGS: A nasogastric tube is in the region of the stomach. There again are dilated gaseous small bowel loops and colon may be slightly improved since the previous exam. Free air cannot be entirely excluded without an upright view. Residual contrast in the right side of the abdomen seen. Normal soft tissue structures. There is no demonstrated acute osseous changes. RAD/Abdomen Single View (Portable) IMPRESSION: Slightly improved gas pattern as described above. Electronically Signed: Hossein oBse MD at 9:03 EST Tel , Service support ,
--- NOTE | 2019-09-02 06:53 | NURSING ---
Per Dr. Purdy's request, I called lab to see if this pt's labs had been drawn yet. They just bipin them a short while ago.
[2019-09-02 06:59] LABS: Absolute Lymphocyte Count 0.37 X10^3/uL (0.83-4.51); Absolute Neutrophil Count 9.5 X10^3/uL (2.0-7.7); Hematocrit 33.4 % (37-47); Hemoglobin 10.9 g/dL (12.0-15.0); Lymphocyte # 0.37 X10^3/ul (4.0); Lymphocyte % 3.7 % (19-41); Mean Corp Hgb Conc 32.6 g/dL (32-36); Mean Corpuscular Hgb 29.4 pg (27.0-32.0); Mean Platelet Vol. 11.5 fl (6.2-12.0); NRBC Flagged by Analyzer 0 % (0-5); Neutrophil % 94.8 % (47-70); POSITIVE DIFFERENTIAL YES; POSITIVE MORPHOLOGY YES; Platelet Count 160 K/mm3 (150-450); RBC Distribution Width CV 14.2 % (11.6-14.6); RBC Distribution Width SD 46.5 fl (35.1-43.9); Red Blood Count 3.71 M/mm3 (4.2-5.4)
[2019-09-02 07:04] LABS: Differential Indicated SCAN CRITERIA MET
[2019-09-02 07:28] LABS: Anion Gap 7 (5-15); BUN 9 mg/dL (7-18); BUN/Creat Ratio 12.7 RATIO (10-20); Calcium,Total 7.8 mg/dL (8.5-10.1); Chloride 107 mmol/L (98-107); Creatinine, Serum 0.71 mg/dL (0.55-1.02); Differential Comment SCANNED; EST Glomerular Filtration Rate 99 mL/min (>60); Est Glom Filt Rate - Afr Amer 120 mL/min (>60); Estimated Creatinine Clearance 119.15 ml/min; Glucose 180 mg/dL (74-106); Magnesium 1.6 mg/dL (1.6-2.6); Phosphorus 1.7 mg/dL (2.5-4.9); Potassium 3.5 mmol/L (3.5-5.1); Sodium Level 138 mmol/L (136-145)
--- NOTE | 2019-09-02 07:53 | PN.SURG_ITS ---
Patient Problems: Active and Suspected Problems (Last Reviewed 04/07/19 @ 12:59 by Jessica Morales) Perforation of sigmoid colon due to diverticulitis (Acute) Subjective: Patient was doing well overnight. She did not require any pain medication. She is not passing any flatus but there is minimal output from the NG. - Physical Exam Vitals/I&O's: Vital Signs Temp Pulse Resp BP Pulse Ox 97.4 F L 98 20 H 111/67 96 09/02/19 06:40 09/02/19 06:40 09/02/19 06:40 09/02/19 06:40 09/02/19 06:40 Oxygen Flow Rate (L/min) 1 Oxygen Delivery Method Room Air Weight: 151 lb 14.376 oz Body Mass Index (BMI) 30.7 Intake and Output for Last 24 Hours 08/31/19 09/01/19 09/02/19 23:59 23:59 23:59 Intake Total 3050 / 3050 476.67 / 476.67 Output Total 375 / 375 200 / 200 Balance 2675 / 2675 276.67 / 276.67 General: Alert, Oriented x3 Neck: No JVD Lungs: Normal air movement Cardiovascular: Regular rate, Regular Rhythm Abdomen: Soft, Non-Distended, Tender Laboratory Results 09/01/19 15:15: WBC 12.4 H, RBC 4.25, Hgb 12.3, Hct 38.1, MCV 89.6, MCH 28.9, MCHC 32.3, RDW Std Deviation 45.8 H, RDW Coeff of Min 14.2, Plt Count 186, MPV 10.8, Immature Gran % (Auto) 0.400, Neut % (Auto) 90.8 H, Lymph % (Auto) 5.7 L, Fleming % (Auto) 2.8, Eos % (Auto) 0.1, Baso % (Auto) 0.2, Absolute Neuts (auto) 11.2 H, Absolute Lymphs (auto) 0.70 L, Nucleated RBC % 0 09/01/19 15:15: Sodium 139, Potassium 3.4 L, Chloride 108 H, Carbon Dioxide 26.0, Anion Gap 5, BUN 9, Creatinine 0.74, Estim Creat Clear Calc 109.12, Est GFR (MDRD) Af Amer 114, Est GFR (MDRD) Non-Af 94, BUN/Creatinine Ratio 12.1, Glucose 92, Calcium 9.1, Total Bilirubin 2.40 H, AST 11 L, ALT 20, Alkaline Phosphatase 73, Total Protein 7.2, Albumin 3.6, Globulin 3.6, Albumin/Globulin Ratio 1.0, Lipase 47 L 09/01/19 15:15: Serum , Qual NEGATIVE 09/01/19 17:05: Urine Color Yellow, Urine Clarity Sl. Cloudy, Urine pH 5.0, Ur Specific [place] 1.010, Urine Protein Negative, Urine Glucose (UA) Normal, Urine Ketones 150 H, Urine Occult Blood 10 H, Urine Nitrite Negative, Urine Bilirubin Negative, Urine Urobilinogen Normal, Ur Leukocyte Esterase Negative, Urine RBC 0 SEEN, Urine WBC 0 SEEN, Ur Squamous Epith Cells 0-5 SEEN, Urine Bacteria 0 SEEN, Urine Mucus 0 SEEN 09/02/19 06:49: WBC 10.0, RBC 3.71 L, Hgb 10.9 L, Hct 33.4 L, MCV 90.0, MCH 29.4, MCHC 32.6, RDW Std Deviation 46.5 H, RDW Coeff of Min 14.2, Plt Count 160, MPV 11.5, Immature Gran % (Auto) 0.500, Neut % (Auto) 94.8 H, Lymph % (Auto) 3.7 L, [place] % (Auto) 1.0, Eos % (Auto) 0.0, Baso % (Auto) 0.0, Absolute Neuts (auto) 9.5 H, Absolute Lymphs (auto) 0.37 L, Nucleated RBC % 0, Differential Comment SCANNED 09/02/19 06:49: Sodium 138, Potassium 3.5, Chloride 107, Carbon Dioxide 24.0, Anion Gap 7, BUN 9, Creatinine 0.71, Estim Creat Clear Calc 119.15, Est GFR (MDRD) Af Amer 120, Est GFR (MDRD) Non-Af 99, BUN/Creatinine Ratio 12.7, Glucose 180 H, Calcium 7.8 L, Phosphorus 1.7 L, Magnesium 1.6 Current Medications Enoxaparin Sodium (Lovenox) 40 mg SC DAILY CATHIE Hydromorphone HCl (Dilaudid Inj) 1 mg IV Q2H PRN PRN PRN Reason: Pain Score 4-10/10 Pantoprazole Sodium 40 mg/ (Sodium Chloride) 110 mls @ 330 mls/hr IV Q24 CATHIE Piperacillin Sod/Tazobactam (Sod 3.375 gm/ Sodium Chloride) 50 mls @ 12.5 mls/hr IV Q8 [facility] Last Admin: 09/02/19 06:23 Dose: 12.5 mls/hr Documented by: Sodium Chloride () 500 mls @ 999 mls/hr IV .Q31M ONE Stop: 09/02/19 08:02 Last Admin: 09/02/19 07:48 Dose: 999 mls/hr Documented by: Sodium Chloride () 1,000 mls @ 100 mls/hr IV .Q10H [facility] Potassium Phosphate 30 mm/ (Sodium Chloride) 260 mls @ 42 mls/hr IV X1 ONE Stop: 09/02/19 13:43 Magnesium Sulfate () 4 gm in 100 mls @ 25 mls/hr IV X1 ONE Stop: 09/02/19 11:59 Ketorolac Tromethamine (Toradol (Bkc)) 15 mg IV Q8 [facility] Stop: 09/06/19 22:01 Ondansetron HCl (Zofran) 4 mg IV Q6H PRN PRN PRN Reason: NAUSEA Last Admin: 09/02/19 05:10 Dose: 4 mg Documented by: Prochlorperazine Edisylate (Compazine Iv) 10 mg IV Q6H PRN PRN PRN Reason: NAUSEA Sodium Chloride () 10 - 40 ml IV UD PRN PRN Reason: SALINE FLUSH Medical Necessity - Tobacco Use Smoking Status: Former smoker Assessment/Plan All Active Problems (Last Reviewed 04/07/19 @ 12:59 by Jessica Morales) Perforation of sigmoid colon due to diverticulitis (Acute) Ovarian cyst (Acute) Diverticulitis (Acute) Hx of tonsillectomy (Acute) History of surgical removal of ganglion cyst (Acute) Hx of tubal ligation (Acute) Hx of tooth extraction (Acute) Abdominal pain (Acute) Sterilization (Acute) 34-year-old female status post sigmoid colectomy for perforated diverticulitis 1. Patient seems to be doing well this morning. She was having a lot of nausea but she attributed that to the gag reflex due to the NG. The KUB this morning only showed dilated colon significant for colonic ileus. NG had minimal output so I removed it. This is the NG was removed her nausea disappeared. Her abdomen is soft and tender to deep palpation but her incision is clean dry and intact with no signs of erythema. 2. She had marginal urine output and I will give her 500 cc bolus and continue Monge for urine output monitoring. 3. GI/DVT prophylaxis ordered. Continue antibiotics. 4. Encourage ambulation and await flatus. Moses Purdy MD Pager: [facility] [address] [place] [address] [address] [place] [address] Office:
[2019-09-02] MEDS: Ketorolac 15 MG/ML Vial IV ×3 (08:07→20:58)
[2019-09-02] MEDS: 0.9% Normal Saline 1,000 ML 100 ML IV ×2 (08:22→18:40)
[2019-09-02] MEDS: Magnesium Sulfate 4gm/100mL 4 GM/100 ML IV.SOLN. IV (09:12)
[2019-09-02] MEDS: 0.9% Saline Lock 10 ML Syringe IV ×3 (09:15→13:13)
[2019-09-02] MEDS: Enoxaparin 40 MG/0.4 ML Syringe SC (11:37)
--- NOTE | 2019-09-02 13:45 | NURSING ---
Walked all around the unit and back to room. Sat up in chair for almost 2 hrs. Back in bed at this time.
--- NOTE | 2019-09-02 15:47 | CM.UR ---
RN CM Assessment Introduced role of RN CM to patient. Patient is alert and able to participate in RN CM Assessment. Care providers, pharmacy, and demographics verified. Mother at bedside. Presentation: Abd Pain Admit Dx: perforated diverticulitis Re-Admit: No Barriers/Issues: none PCP: None--list given Preferred Pharmacy: [facility] Insurance: [place] Rx Benefit: Yes LNOK: , [place] LW/HPOA: None. Living Arrangements: with ADL?s: Previously Independent with all ADLS and care. Transportation: drives self DME: None DME co: HHC: None SNF: None Goal: Home, NN DC PLAN: No additional needs anticipated. Janes Conn RN, CCM.
--- NOTE | 2019-09-02 16:18 | NURSING ---
Addendum entered by Breanna Smith 09/02/19 16:28: Pt wanted to know if she could have water. This nurse Cortexted Dr. Purdy to inform him of findings of good output and passing flatus. Orders for cortes removal and sips and chips. Original Note: Walked around roman again with mother. Now is sitting in chair. Focused assessment done, see findings. pt states she has passed some flatus. Cortes putting out good output. Approx 500cc in the cortes bag at this time.
[2019-09-03 04:45] VITALS: BP 101/70; PULSE 83; RESP 16; TEMP 36.7; O2SAT 96
[2019-09-03] MEDS: 0.9% Normal Saline 1,000 ML 100 ML IV (05:37)
[2019-09-03] MEDS: Ketorolac 15 MG/ML Vial IV ×2 (05:40→21:09)
[2019-09-03] MEDS: 0.9% Saline Lock 10 ML Syringe IV ×2 (06:15→20:01)
--- NOTE | 2019-09-03 06:23 | RAD_ITS ---
STUDY: X-RAY - ABDOMEN/PELVIS REASON FOR EXAM: Female, 34 years old. PERFORATED SIGMOID COLON TECHNIQUE: Two AP supine views of the abdomen and pelvis. COMPARISON: 09/02/2019 FINDINGS: Normal visualized lung bases. Mild diffuse gaseous distention of small bowel and colon with further progression of bowel contrast, now in the rectum. Enteric tube has been removed. Overall decreased distention of colon since prior study. There is no demonstrated free abdominal air. The visualized liver, spleen and kidneys are grossly normal in size and morphology. Normal soft tissue structures. Normal visualized osseous structures. RAD/Abdomen Single View (Portable) IMPRESSION: Resolving ileus. Removal of enteric tube. Electronically Signed: Spencer Hopper MD (Brooks) at 14:17 EDT , Service support ,
[2019-09-03 06:34] LABS: Absolute Lymphocyte Count 1.27 X10^3/uL (0.83-4.51); Basophil# 0.02 X10^3/uL; Basophil% 0.2 % (0-1); Eosinophil# 0.01 X10^3/uL; Eosinophils% 0.1 % (0-5); Hematocrit 31.1 % (37-47); Hemoglobin 9.8 g/dL (12.0-15.0); Lymphocyte # 1.27 X10^3/ul (4.0); Lymphocyte % 14.6 % (19-41); Mean Corp Hgb Conc 31.5 g/dL (32-36); Mean Corpuscular Hgb 28.7 pg (27.0-32.0); Mean Corpuscular Volume 91.2 fL (81-99); Mean Platelet Vol. 11.7 fl (6.2-12.0); Monocyte# 0.36 X10^3/uL; Monocyte% 4.1 % (0-10); NRBC Flagged by Analyzer 0 % (0-5); Neutrophil # 7.02 X10^3/uL (2.7-7.7); Neutrophil % 80.7 % (47-70); Platelet Count 168 K/mm3 (150-450); RBC Distribution Width CV 14.9 % (11.6-14.6); RBC Distribution Width SD 49.2 fl (35.1-43.9); Red Blood Count 3.41 M/mm3 (4.2-5.4); White Blood Count 8.7 K/mm3 (4.4-11.0)
[2019-09-03 07:05] LABS: Anion Gap 6 (5-15); BUN 10 mg/dL (7-18); BUN/Creat Ratio 13.9 RATIO (10-20); Calcium,Total 7.6 mg/dL (8.5-10.1); Chloride 116 mmol/L (98-107); Creatinine, Serum 0.72 mg/dL (0.55-1.02); EST Glomerular Filtration Rate 98 mL/min (>60); Est Glom Filt Rate - Afr Amer 118 mL/min (>60); Estimated Creatinine Clearance 117.49 ml/min; Glucose 84 mg/dL (74-106); Potassium 3.7 mmol/L (3.5-5.1); Sodium Level 144 mmol/L (136-145)
--- NOTE | 2019-09-03 07:53 | PN.SURG_ITS ---
Patient Problems: Active and Suspected Problems (Last Reviewed 04/07/19 @ 12:59 by Jessica Morales) Perforation of sigmoid colon due to diverticulitis (Acute) Subjective: Patient reports she had a bowel movement and she is passing flatus. She is having no nausea or vomiting. Abdominal pain is controlled. - Physical Exam Vitals/I&O's: Vital Signs Temp Pulse Resp BP Pulse Ox 98.1 F 83 16 101/70 96 09/03/19 04:45 09/03/19 04:45 09/03/19 04:45 09/03/19 04:45 09/03/19 04:45 Oxygen Flow Rate (L/min) 1 Oxygen Delivery Method Room Air Weight: 151 lb 14.376 oz Body Mass Index (BMI) 30.7 Intake and Output for Last 24 Hours 09/01/19 09/02/19 09/04/19 23:59 23:59 00:59 Intake Total 3050 / 3050 2546.67 / 2686.67 1297.92 / 1297.92 Output Total 375 / 375 1200 / 1200 200 / 200 Balance 2675 / 2675 1346.67 / 1486.67 1097.92 / 1097.92 General: Alert, Oriented x3 Lungs: Normal air movement Cardiovascular: Regular rate, Regular Rhythm Abdomen: Soft, Non-Distended Laboratory Results 09/02/19 06:49: WBC 10.0, RBC 3.71 L, Hgb 10.9 L, Hct 33.4 L, MCV 90.0, MCH 29.4, MCHC 32.6, RDW Std Deviation 46.5 H, RDW Coeff of Min 14.2, Plt Count 160, MPV 11.5, Immature Gran % (Auto) 0.500, Neut % (Auto) 94.8 H, Lymph % (Auto) 3.7 L, [place] % (Auto) 1.0, Eos % (Auto) 0.0, Baso % (Auto) 0.0, Absolute Neuts (auto) 9.5 H, Absolute Lymphs (auto) 0.37 L, Nucleated RBC % 0, Differential Comment SCANNED 09/02/19 06:49: Sodium 138, Potassium 3.5, Chloride 107, Carbon Dioxide 24.0, Anion Gap 7, BUN 9, Creatinine 0.71, Estim Creat Clear Calc 119.15, Est GFR (MDRD) Af Amer 120, Est GFR (MDRD) Non-Af 99, BUN/Creatinine Ratio 12.7, Glucose 180 H, Calcium 7.8 L, Phosphorus 1.7 L, Magnesium 1.6 09/03/19 05:20: WBC 8.7, RBC 3.41 L, Hgb 9.8 L, Hct 31.1 L, MCV 91.2, MCH 28.7, MCHC 31.5 L, RDW Std Deviation 49.2 H, RDW Coeff of Min 14.9 H, Plt Count 168, MPV 11.7, Immature Gran % (Auto) 0.300, Neut % (Auto) 80.7 H, Lymph % (Auto) 14.6 L, [place] % (Auto) 4.1, Eos % (Auto) 0.1, Baso % (Auto) 0.2, Absolute Neuts (auto) 7.0, Absolute Lymphs (auto) 1.27, Nucleated RBC % 0 09/03/19 05:20: Sodium 144, Potassium 3.7, Chloride 116 H, Carbon Dioxide 22.0, Anion Gap 6, BUN 10, Creatinine 0.72, Estim Creat Clear Calc 117.49, Est GFR (MDRD) Af Amer 118, Est GFR (MDRD) Non-Af 98, BUN/Creatinine Ratio 13.9, Glucose 84, Calcium 7.6 L Current Medications Enoxaparin Sodium (Lovenox) 40 mg SC DAILY ON LICENSE OF [facility] Last Admin: 09/02/19 11:37 Dose: 40 mg Documented by: Hydromorphone HCl (Dilaudid Inj) 1 mg IV Q2H PRN PRN PRN Reason: Pain Score 4-10/10 Piperacillin Sod/Tazobactam (Sod 3.375 gm/ Sodium Chloride) 50 mls @ 12.5 mls/hr IV Q8 ON LICENSE OF [facility] Last Infusion: 09/03/19 06:47 Dose: 12.5 mls/hr Documented by: Ketorolac Tromethamine (Toradol (Bkc)) 15 mg IV Q8 ON LICENSE OF [facility] Stop: 09/06/19 22:01 Last Admin: 09/03/19 05:40 Dose: 15 mg Documented by: Ondansetron HCl (Zofran) 4 mg IV Q6H PRN PRN PRN Reason: NAUSEA Last Admin: 09/02/19 05:10 Dose: 4 mg Documented by: Prochlorperazine Edisylate (Compazine Iv) 10 mg IV Q6H PRN PRN PRN Reason: NAUSEA Sodium Chloride () 10 - 40 ml IV UD PRN PRN Reason: SALINE FLUSH Last Admin: 09/03/19 06:15 Dose: 40 ml Documented by: Medical Necessity - Tobacco Use Smoking Status: Former smoker Assessment/Plan All Active Problems (Last Reviewed 04/07/19 @ 12:59 by Jessica Morales) Perforation of sigmoid colon due to diverticulitis (Acute) Ovarian cyst (Acute) Diverticulitis (Acute) Hx of tonsillectomy (Acute) History of surgical removal of ganglion cyst (Acute) Hx of tubal ligation (Acute) Hx of tooth extraction (Acute) Abdominal pain (Acute) Sterilization (Acute) 34-year-old female status post perforated sigmoid resection 1. Patient overall is doing well. She is passing flatus. I will start a clear liquid diet. I will also start oral pain medications and DC her IV fluids. If she tolerates a diet today then she would likely be ready for discharge tomorrow. Continue antibiotics today. Moses Purdy MD Pager: [facility] [address] [place] [address], [address] [place] [address] Office:
[2019-09-03 10:03] VITALS: BP 103/67; PULSE 72; RESP 18; TEMP 36.8; O2SAT 96
[2019-09-03] MEDS: Pantoprazole Sodium 20 MG Tablet PO (10:17)
[2019-09-03] MEDS: Enoxaparin 40 MG/0.4 ML Syringe SC (10:18)
--- NOTE | 2019-09-03 11:28 | NURSING ---
walking the roman with her at this time. This is the second time today that pt is walking the halls.
[2019-09-03 18:00] VITALS: BP 97/66; PULSE 67; RESP 16; TEMP 36.4; O2SAT 100
[2019-09-03 20:08] VITALS: BP 104/75; PULSE 79; RESP 16; TEMP 36.4; O2SAT 99
[2019-09-04 03:00] VITALS: BP 102/75; PULSE 57; RESP 16; TEMP 36.5; O2SAT 99
[2019-09-04] MEDS: Ketorolac 15 MG/ML Vial IV (05:16)
[2019-09-04 06:26] LABS: Absolute Lymphocyte Count 1.67 X10^3/uL (0.83-4.51); Basophil# 0.01 X10^3/uL; Basophil% 0.2 % (0-1); Eosinophil# 0.01 X10^3/uL; Eosinophils% 0.2 % (0-5); Hematocrit 30.5 % (37-47); Hemoglobin 9.7 g/dL (12.0-15.0); Lymphocyte # 1.67 X10^3/ul (4.0); Lymphocyte % 32.9 % (19-41); Mean Corp Hgb Conc 31.8 g/dL (32-36); Mean Corpuscular Hgb 29.4 pg (27.0-32.0); Mean Corpuscular Volume 92.4 fL (81-99); Mean Platelet Vol. 11.6 fl (6.2-12.0); Monocyte# 0.35 X10^3/uL; Monocyte% 6.9 % (0-10); NRBC Flagged by Analyzer 0 % (0-5); Neutrophil # 3.02 X10^3/uL (2.7-7.7); Neutrophil % 59.6 % (47-70); Platelet Count 159 K/mm3 (150-450); RBC Distribution Width CV 14.9 % (11.6-14.6); RBC Distribution Width SD 50.7 fl (35.1-43.9); White Blood Count 5.1 K/mm3 (4.4-11.0)
[2019-09-04 06:50] LABS: Anion Gap 6 (5-15); BUN 10 mg/dL (7-18); BUN/Creat Ratio 14.7 RATIO (10-20); Calcium,Total 8.3 mg/dL (8.5-10.1); Chloride 114 mmol/L (98-107); Creatinine, Serum 0.68 mg/dL (0.55-1.02); EST Glomerular Filtration Rate 104 mL/min (>60); Est Glom Filt Rate - Afr Amer 126 mL/min (>60); Glucose 72 mg/dL (74-106); Potassium 3.5 mmol/L (3.5-5.1); Sodium Level 143 mmol/L (136-145)
--- NOTE | 2019-09-04 08:03 | PN.SURG_ITS ---
Patient Problems: Active and Suspected Problems (Last Reviewed 04/07/19 @ 12:59 by Jessica Morales) Perforation of sigmoid colon due to diverticulitis (Acute) Subjective: Patient is doing well and tolerating clear liquids and passing flatus. Her abdominal pain is well controlled. - Physical Exam Vitals/I&O's: Vital Signs Temp Pulse Resp BP Pulse Ox 97.7 F L 57 L 16 102/75 99 09/04/19 03:00 09/04/19 03:00 09/04/19 03:00 09/04/19 03:00 09/04/19 03:00 Oxygen Flow Rate (L/min) 1 Oxygen Delivery Method Room Air Weight: 151 lb 14.376 oz Body Mass Index (BMI) 30.7 Intake and Output for Last 24 Hours 09/02/19 09/03/19 09/04/19 22:59 23:59 23:59 Intake Total 950 / 950 Output Total 500 / 500 Balance 450 / 450 General: Alert, Oriented x3 Lungs: Normal air movement Abdomen: Soft, Non Tender, Non-Distended Laboratory Results 09/04/19 05:50: WBC 5.1, RBC 3.30 L, Hgb 9.7 L, Hct 30.5 L, MCV 92.4, MCH 29.4, MCHC 31.8 L, RDW Std Deviation 50.7 H, RDW Coeff of Min 14.9 H, Plt Count 159, MPV 11.6, Immature Gran % (Auto) 0.200, Neut % (Auto) 59.6, Lymph % (Auto) 32.9, [place] % (Auto) 6.9, Eos % (Auto) 0.2, Baso % (Auto) 0.2, Absolute Neuts (auto) 3.0, Absolute Lymphs (auto) 1.67, Nucleated RBC % 0 09/04/19 05:50: Sodium 143, Potassium 3.5, Chloride 114 H, Carbon Dioxide 23.0, Anion Gap 6, BUN 10, Creatinine 0.68, Estim Creat Clear Calc 124.40, Est GFR (MDRD) Af Amer 126, Est GFR (MDRD) Non-Af 104, BUN/Creatinine Ratio 14.7, Glucose 72 L, Calcium 8.3 L Current Medications Acetaminophen (Tylenol) 650 mg PO Q4H PRN PRN PRN Reason: Pain or Fever Docusate Sodium (Colace) 100 mg PO BID [facility] Last Admin: 09/03/19 21:08 Dose: Not Given Documented by: Enoxaparin Sodium (Lovenox) 40 mg SC DAILY [facility] Last Admin: 09/03/19 10:18 Dose: 40 mg Documented by: Hydromorphone HCl (Dilaudid Inj) 1 mg IV Q2H PRN PRN PRN Reason: Pain Score 4-10/10 Ketorolac Tromethamine (Toradol (Bkc)) 15 mg IV Q8 [facility] Stop: 09/06/19 22:01 Last Admin: 09/04/19 05:16 Dose: 15 mg Documented by: Ondansetron HCl (Zofran) 4 mg IV Q6H PRN PRN PRN Reason: NAUSEA Last Admin: 09/02/19 05:10 Dose: 4 mg Documented by: Oxycodone HCl (Oxyir) 5 - 10 mg PO Q4H PRN PRN PRN Reason: Pain Score 4-10/10 Pantoprazole Sodium (Protonix) 20 mg PO DAILY [facility] Last Admin: 09/03/19 10:17 Dose: 20 mg Documented by: Prochlorperazine Edisylate (Compazine Iv) 10 mg IV Q6H PRN PRN PRN Reason: NAUSEA Sodium Chloride () 10 - 40 ml IV UD PRN PRN Reason: SALINE FLUSH Last Admin: 09/03/19 20:01 Dose: 10 ml Documented by: Medical Necessity - Tobacco Use Smoking Status: Former smoker Assessment/Plan All Active Problems (Last Reviewed 04/07/19 @ 12:59 by Jessica Morales) Perforation of sigmoid colon due to diverticulitis (Acute) Ovarian cyst (Acute) Diverticulitis (Acute) Hx of tonsillectomy (Acute) History of surgical removal of ganglion cyst (Acute) Hx of tubal ligation (Acute) Hx of tooth extraction (Acute) Abdominal pain (Acute) Sterilization (Acute) 34-year-old female with perforated diverticulitis status post sigmoid colectomy 1. Patient is doing well today. She tolerated clear liquid diet and is passing flatus with no nausea or vomiting. I will allow her to go home if she tolerates a transitional diet. I did stop her fluids and antibiotics. Moses Purdy MD Pager: [facility] [address] [place] [address], [address] [place] [address] Office:
--- NOTE | 2019-09-04 08:06 | DCINST_ITS ---
- Discharge Diagnoses Current Active Problems: Current Active and Chronic Problems (Last Reviewed 04/07/19 @ 12:59 by Jessica Morales) Perforation of sigmoid colon due to diverticulitis (Acute) You will use the following diet at home:: Other - Transitional Your liquids should be the consistency of: Regular/Thin Discharge Activity: May Shower Lifting Restrictions: 20 lbs for 4 weeks Additional Activity Instructions:: May return to work light duty when you feel up to it Call your doctor if your incision/area has: Continuous Slow Oozing, Sudden Increased Bleeding, Increased Pain/ Swelling, Increased Redness, Foul Smelling Discharge, Swelling at the incision site Call your doctor if you observe: Fever of 101 or Higher Remove Dressing in (days):: 2 Cleanse incision/area with: Soap & Water Allergies/Adverse Reactions: Allergies metronidazole [From Flagyl] Adverse Reaction (Verified 09/01/19 13:56) Vomiting Medications to take at Discharge Docusate Sodium [Colace] 100 mg PO DAILY 09/01/19 Ibuprofen [Motrin] 200 mg PO DAILY PRN PRN 09/01/19 Oxycodone [Oxyir] 5 - 10 mg PO Q4H PRN PRN 5 Days #20 tablet 09/04/19 The following prescriptions were given: Oxycodone [Oxyir] 5 - 10 mg PO Q4H PRN PRN 5 Days #20 tablet PRN Reason: Pain Score 4-10/10 Transmission Status: Sent to [facility] Primary Care Physician: Care Physician,No Primary [Primary Care Provider] - Test Results: Test results from this visit will be discussed in further detail at your follow- up appointment, if applicable. Please Follow Up With: Moses Purdy MD When: Please call to schedule 1 week follow up appointment. [phone]
--- NOTE | 2019-09-04 08:08 | DS.PCM_ITS ---
Discharge Date and Diagnosis Date of Admission: 09/01/19 Date of Discharge: 09/04/19 - Primary Discharge Diagnosis Active and Suspected Problems (Last Reviewed 04/07/19 @ 12:59 by Jessica Morales) Perforation of sigmoid colon due to diverticulitis (Acute) Hospital Course and Treatment Imaging Results: Clinical Impression(s) from Imaging Studies Abdomen/Pelvis CT 09/01/19 15:08 IMPRESSION: Probable perforated acute sigmoid diverticulitis with small to moderate free air in the abdomen. No definite abscess. Secondary small bowel ileus. Electronically Signed: Nba Flores MD at 17:18 EST , Service support , ADDENDUM: 09/01/19 1734 IMPRESSION: Probable perforated acute sigmoid diverticulitis with small to moderate free air in the abdomen. No definite abscess. Secondary small bowel ileus. N.B. : The above information has been verbally conveyed by Nba Flores MD to Herbert Rodriguez MD, on 09/01/2019 17:27:03 (ET). Electronically Signed: Nba Flores MD at 17:18 EST , Service support , KUB X-Ray 09/01/19 18:10 IMPRESSION: Nasogastric tube is coiled in the upper stomach. Electronically Signed: Nba Flores MD at 19:40 EST , Service support , KUB X-Ray 09/01/19 21:20 IMPRESSION: Slight change in position of the NG tube when compared to the earlier study. Electronically Signed: Mikie Minor DO at 23:14 EST Tel [phone], Service support , KUB X-Ray 09/01/19 21:29 IMPRESSION: Gastric tube in the stomach. Intra-abdominal free gas, presumed perforation. Electronically Signed: Charlee Garcia at 22:13 EST Tel , Service support , KUB X-Ray 09/01/19 21:30 IMPRESSION: Slight retraction of the NG tube when compared with study of 12 minutes earlier. Electronically Signed: Mikie AllianceDO felipe at 23:12 EST Tel [phone], Service support , KUB X-Ray 09/01/19 21:31 IMPRESSION: Slight advancement of the NG tube when compared to a study performed moments earlier. Electronically Signed: Mikie Minor DO at 23:14 EST Tel [phone], Service support , KUB X-Ray 09/02/19 05:25 IMPRESSION: Slightly improved gas pattern as described above. Electronically Signed: Hossein Bose MD at 9:03 EST Tel , Service support , KUB X-Ray 09/03/19 06:23 IMPRESSION: Resolving ileus. Removal of enteric tube. Electronically Signed: Spencer Hopper MD (Brooks) at 14:17 EDT , Service support , Operations: colectomy Procedures: None Summary of Care Provided: The patient is a 34 year old F who presented with abdominal pain and was found to have free air. She was taken for a sigmoid colectomy with anastomosis. She was sent to the floor postoperatively and once she was not passing gas she was started on liquid diet and then advance as tolerated. When she was tolerating diet she was discharged home in stable condition. - Physical Exam Vitals/I&O's: Vital Signs Temp Pulse Resp BP Pulse Ox 97.7 F L 57 L 16 102/75 99 09/04/19 03:00 09/04/19 03:00 09/04/19 03:00 09/04/19 03:00 09/04/19 03:00 Oxygen Flow Rate (L/min) 1 Oxygen Delivery Method Room Air Weight: 151 lb 14.376 oz Body Mass Index (BMI) 30.7 Intake and Output for Last 24 Hours 09/02/19 09/03/19 09/04/19 22:59 23:59 23:59 Intake Total 950 / 950 Output Total 500 / 500 Balance 450 / 450 Laboratory Results 09/04/19 05:50: WBC 5.1, RBC 3.30 L, Hgb 9.7 L, Hct 30.5 L, MCV 92.4, MCH 29.4, MCHC 31.8 L, RDW Std Deviation 50.7 H, RDW Coeff of Min 14.9 H, Plt Count 159, MPV 11.6, Immature Gran % (Auto) 0.200, Neut % (Auto) 59.6, Lymph % (Auto) 32.9, [place] % (Auto) 6.9, Eos % (Auto) 0.2, Baso % (Auto) 0.2, Absolute Neuts (auto) 3.0, Absolute Lymphs (auto) 1.67, Nucleated RBC % 0 09/04/19 05:50: Sodium 143, Potassium 3.5, Chloride 114 H, Carbon Dioxide 23.0, Anion Gap 6, BUN 10, Creatinine 0.68, Estim Creat Clear Calc 124.40, Est GFR (MDRD) Af Amer 126, Est GFR (MDRD) Non-Af 104, BUN/Creatinine Ratio 14.7, Glucose 72 L, Calcium 8.3 L Current Medications Acetaminophen (Tylenol) 650 mg PO Q4H PRN PRN PRN Reason: Pain or Fever Docusate Sodium (Colace) 100 mg PO BID [facility] Last Admin: 09/03/19 21:08 Dose: Not Given Documented by: Enoxaparin Sodium (Lovenox) 40 mg SC DAILY [facility] Last Admin: 09/03/19 10:18 Dose: 40 mg Documented by: Hydromorphone HCl (Dilaudid Inj) 1 mg IV Q2H PRN PRN PRN Reason: Pain Score 4-10/10 Ketorolac Tromethamine (Toradol (Bkc)) 15 mg IV Q8 [facility] Stop: 09/06/19 22:01 Last Admin: 09/04/19 05:16 Dose: 15 mg Documented by: Ondansetron HCl (Zofran) 4 mg IV Q6H PRN PRN PRN Reason: NAUSEA Last Admin: 09/02/19 05:10 Dose: 4 mg Documented by: Oxycodone HCl (Oxyir) 5 - 10 mg PO Q4H PRN PRN PRN Reason: Pain Score 4-10/10 Pantoprazole Sodium (Protonix) 20 mg PO DAILY [facility] Last Admin: 09/03/19 10:17 Dose: 20 mg Documented by: Prochlorperazine Edisylate (Compazine Iv) 10 mg IV Q6H PRN PRN PRN Reason: NAUSEA Sodium Chloride () 10 - 40 ml IV UD PRN PRN Reason: SALINE FLUSH Last Admin: 09/03/19 20:01 Dose: 10 ml Documented by: Discharge Activity: May Shower Additional Activity Instructions:: May return to work light duty when you feel up to it Call your doctor if your incision/area has: Continuous Slow Oozing, Sudden Increased Bleeding, Increased Pain/ Swelling, Increased Redness, Foul Smelling Discharge, Swelling at the incision site Call your doctor if you observe: Fever of 101 or Higher Remove Dressing in (days):: 2 Cleanse incision/area with: Soap & Water Home Medications: Medications to take at Discharge Docusate Sodium [Colace] 100 mg PO DAILY 09/01/19 Ibuprofen [Motrin] 200 mg PO DAILY PRN PRN 09/01/19 Oxycodone [Oxyir] 5 - 10 mg PO Q4H PRN PRN 5 Days #20 tab 09/04/19 Following Prescrptions Were Given to Patient: Oxycodone [Oxyir] 5 - 10 mg PO Q4H PRN PRN 5 Days #20 tab PRN Reason: Pain Score 4-10/10 Transmission Status: Sent to [facility] Primary Care Physician: Care Physician,No Primary [Primary Care Provider] - Please Follow Up With: Moses Purdy MD When: Please call to schedule 1 week follow up appointment. [phone] Medical Necessity - Tobacco Use Smoking Status: Former smoker Meaningful Use Info Meaningful Use Diagnoses (Choose all that apply): None applicable
[2019-09-04 09:45] VITALS: BP 120/81; PULSE 59; RESP 16; TEMP 36.5; O2SAT 100
[2019-09-04] MEDS: Pantoprazole Sodium 20 MG Tablet PO (09:52)
[2019-09-04] MEDS: Docusate Sodium 100 MG Capsule PO (09:53)
[2019-09-04 12:10] VITALS: BP 120/77; PULSE 60; RESP 16; TEMP 36.5; O2SAT 99
== END 2019-09-04 12:37 | disposition home or self-care (01) | DRG 330 ==
LOC: ED 15:21 → SDC 17:28 → ACINP 17:30 → SDC 22:55 → MS3 22:55
PROVIDERS: Admitting Provider Surgery; Emergency Provider Emergency Medicine; Visit Provider Surgery
PROC: 0DTN0ZZ Resection of Sigmoid Colon, Open Approach (ICD-10-PCS; CPT 44204; principal; 2019-09-01 18:00)
DX: K57.20 Diverticulitis of large intestine with perforation and abscess without bleeding (principal); K56.7 Ileus, unspecified; Z53.31 Laparoscopic surgical procedure converted to open procedure; N70.11 Chronic salpingitis
CPT/HCPCS: 36415; 74018; 74177; 80048; 80053; 81001; 83690; 83735; 84100; 84703; 85025; 88305; 88307; 99285; J7030; J7040; J7050; J7120; Q9967; A4216; C1760; J2405; J3490

== ENCOUNTER → 2023-08-13 | Outpatient (CLI) | payer BC, SELFPAY ==
[2023-08-13 12:20] LABS: Absolute Lymphocyte Count 1.45 X10^3/uL (0.83-4.51); Absolute Neutrophil Count 3.1 X10^3/uL (2.0-7.7); Basophil# 0.02 X10^3/uL; Basophil% 0.4 % (0-1); Eosinophil# 0.04 X10^3/uL; Eosinophils% 0.8 % (0-5); Hematocrit 43.8 % (37-47); Hemoglobin 14.3 g/dL (12.0-15.0); Lymphocyte # 1.45 X10^3/ul (0.83-4.51); Lymphocyte % 28.8 % (19-41); Mean Corp Hgb Conc 32.6 g/dL (32-36); Mean Corpuscular Hgb 30.3 pg (27.0-32.0); Mean Corpuscular Volume 92.8 fL (81-99); Monocyte# 0.38 X10^3/uL; Monocyte% 7.6 % (0-10); NRBC Flagged by Analyzer 0 % (0-5); Neutrophil # 3.13 X10^3/uL (2.7-7.7); Neutrophil % 62.2 % (47-70); Platelet Count 192 K/mm3 (150-450); RBC Distribution Width CV 13.2 % (11.6-14.6); RBC Distribution Width SD 45.1 fl (35.1-43.9); Red Blood Count 4.72 M/mm3 (4.2-5.4)
[2023-08-13 12:51] LABS: AST(SGOT) 15 U/L (15-37); Alanine Aminotransfer ALT/SGPT 25 U/L (13-56); Albumin, Serum 3.5 g/dL (3.2-5.0); Alkaline Phosphatase 74 U/L (45-117); Anion Gap 5 (5-15); BUN 10 mg/dL (7-18); BUN/Creat Ratio 12.6 RATIO (10-20); Calcium,Total 8.9 mg/dL (8.5-10.1); Chloride 111 mmol/L (98-107); Cholesterol 190 mg/dL (200); Creatinine, Serum 0.79 mg/dL (0.55-1.02); EST Glomerular Filtration Rate 85 mL/min (>60); Est Glom Filt Rate - Afr Amer 103 mL/min (>60); Globulin 3.4 g/dL (2.2-4.2); Glucose 83 mg/dL (74-106); High Density Lipoprotein 51 mg/dL; Potassium 3.7 mmol/L (3.5-5.1); Protein, Total 6.9 g/dL (6.4-8.2); Sodium Level 142 mmol/L (136-145); Triglycerides 90 mg/dL; Very Low Density Lipoprotein 18 mg/dL (5-40)
== END | disposition home or self-care (01) ==
LOC: BIMLAB 08:05
PROVIDERS: PCP Internal Medicine; Visit Provider Internal Medicine
DX: Z00.00 Encounter for general adult medical examination without abnormal findings (principal)
CPT/HCPCS: 36415; 80053; 80061; 85025

== ENCOUNTER → 2023-09-20 | Outpatient (CLI) | payer BC, SELFPAY ==
--- NOTE | 2023-09-20 07:00 | BI_ITS ---
MAMMOGRAPHY - BILATERAL SCREENING REASON FOR EXAM: Female, 38 years old. Routine annual screening examination. PERTINENT HISTORY: Non-contributory. TECHNIQUE: Digital bilateral breast josé miguel (3D mammographic acquisition) in the CC and MLO projections. 2-D mediolateral oblique (MLO) and craniocaudad (CC) views of both breasts were obtained. CAD: Full Field Digital Mammography with Computer Added Detection was performed. COMPARISON: None. Baseline examination. FINDINGS: Breast Composition: The breasts are heterogeneously dense, which may obscure small masses. There are no dominant masses or suspicious calcifications. Small benign-appearing bilateral axillary lymph nodes. No other significant abnormalities are identified. BI/SCRN MAMM (CAD)W/JOSÉ MIGUEL BILAT IMPRESSION: Negative screening mammogram. Yearly followup mammogram recommended. (A) ASSESSMENT CATEGORY: Approximately 10% of breast cancers are not detected by mammography. A normal mammogram should not delay biopsy of a clinically suspicious abnormality. [id number] Electronically Signed: Todd Cooper MD at 8:31 EDT ,
== END | disposition home or self-care (01) ==
LOC: OPBI 07:00
PROVIDERS: PCP Internal Medicine; Referring Provider Internal Medicine; Visit Provider Internal Medicine
DX: Z12.31 Encounter for screening mammogram for malignant neoplasm of breast (principal)
CPT/HCPCS: 77063; 77067

== ENCOUNTER → 2024-06-01 | Outpatient (CLI) | payer SELFPAY ==
[2024-06-07 16:06] LABS: HPV APTIMA, High Risk Negative (Negative)
== END | disposition home or self-care (01) ==
LOC: BWCLAB 10:17 → LABSPEC 10:46
PROVIDERS: PCP Internal Medicine; Referring Provider Nurse Practitioner Family; Visit Provider Nurse Practitioner Family
DX: Z12.4 Encounter for screening for malignant neoplasm of cervix (principal)
CPT/HCPCS: 87624; 88175; G0145